=== PATIENT | male | born 1975 | race Caucasian/White ===

== ENCOUNTER → 2021-02-04 | Outpatient (CLI) | payer BC ==
--- NOTE | 2021-02-04 16:06 | RAD ---
EXAM: XR LUMBAR SPINE 4+V 02/04/2021 12:34 PM CLINICAL INDICATION: Lower back pain for one and half years, increasing recently COMPARISON: None TECHNIQUE: 5 views of the lumbar spine FINDINGS: No acute fracture. There are chronic bilateral pars defects at L5. No spondylolisthesis. D isc spaces are maintained. Small anterior osteophyte at L3-L4. IMPRESSION: Chronic bilateral pars defects at L5. No spondylolisthesis or significant degenerative d isc disease. Electronically signed by: Chasity Winters MD (02/04/2021 4:03 PM) [id number]
== END ==
LOC: RAD 12:06
PROVIDERS: ATTEND Physician Assistant Medical
DX: M25.78 Osteophyte, vertebrae (principal); M54.5 Low back pain
CPT/HCPCS: 72110